=== PATIENT | female | born 1995 ===

== ENCOUNTER 2017-04-25 10:07 | Emergency (ER) | payer MEDICAID ==
[2017-04-25 10:17] VITALS: RESP 16
[2017-04-25 10:20] VITALS: BP 104/78; PULSE 102; TEMP 98.7; O2SAT 100; BMI 26.2
--- NOTE | 2017-04-25 10:27 | ED PDOC ---
Arrival/HPI - General Chief Complaint: Fever Time Seen by Provider: 04/25/17 10:21 Historian: Patient - History of Present Illness Narrative History of Present Illness (Text): 04/25/17 10:24 22yo female with no PMHx present with complaint of sore throat and fever x 5days. States she has been taking Nyquil without relieve. +Odynophagia. denies dysphagia, drooling, hoarseness, abdominal pain, neck pain, sick contact. Past Medical History - Provider Review Nursing Documentation Reviewed: Yes - Psychiatric Hx Psychophysiologic Disorder: No Hx Substance Use: No - Surgical History Other/Comment: CYSST REMOVED FROM NECK. Family/Social History - Physician Review Nursing Documentation Reviewed: Yes Family/Social History: Unknown Family HX Smoking Status: Never Smoked Hx Alcohol Use: No Hx Substance Use: No Allergies/Home Meds Allergies/Adverse Reactions: Allergies peanut Allergy (Verified 04/25/17 10:11) RASH Review of Systems - Physician Review All systems were reviewed & negative as marked: Yes - Review of Systems Constitutional: Normal Eyes: Normal ENT: Sore Throat Respiratory: Normal Cardiovascular: Normal Gastrointestinal: Normal Genitourinary Female: Normal Musculoskeletal: Normal Skin: Normal Neurological: Normal Endocrine: Normal Hemo/Lymphatic: Normal Psychiatric: Normal Physical Exam Vital Signs Reviewed: Yes Vital Signs Temp Pulse Resp BP Pulse Ox 04/25/17 10:19 98.7 F 102 H 16 104/78 100 04/25/17 10:11 99.7 F H 105 H 16 90/63 L 99 Temperature: Afebrile Blood Pressure: Normal Pulse: Regular Respiratory Rate: Normal Appearance: Positive for: Well-Appearing, Non-Toxic, Comfortable Pain Distress: None Mental Status: Positive for: Alert and Oriented X 3 - Systems Exam Head: Present: Atraumatic, Normocephalic Pupils: Present: PERRL Extroacular Muscles: Present: EOMI Conjunctiva: Present: Normal Mouth: Present: Moist Mucous Membranes Pharnyx: Present: ERYTHEMA, TONSILS ENLARGED. No: EXUDATE, Peritonsilar Swelling, Uvular Deviation, Muffled/Hoarse Voice, Strider Neck: Present: Normal Range of Motion Respiratory/Chest: Present: Clear to Auscultation, Good Air Exchange. No: Respiratory Distress, Accessory Muscle Use Cardiovascular: Present: Regular Rate and Rhythm, Normal S1, S2. No: Murmurs Abdomen: Present: Normal Bowel Sounds. No: Tenderness, Distention, Peritoneal Signs Back: Present: Normal Inspection Upper Extremity: Present: Normal Inspection. No: Cyanosis, Edema Lower Extremity: Present: Normal Inspection. No: Edema Neurological: Present: GCS=15, CN II-XII Intact, Speech Normal Skin: Present: Warm, Dry, Normal Color. No: Rashes Psychiatric: Present: Alert, Oriented x 3, Normal Insight, Normal Concentration Disposition/Present on Arrival - Present on Arrival Any Indicators Present on Arrival: No History of DVT/PE: No History of Uncontrolled Diabetes: No Urinary Catheter: No History of Decub. Ulcer: No History Surgical Site Infection Following: None - Disposition Have Diagnosis and Disposition been Completed?: Yes Diagnosis: Acute tonsillitis Disposition: HOME/ ROUTINE Disposition Time: 10:30 Patient Plan: Discharge Condition: STABLE Discharge Instructions (ExitCare): Tonsillitis (ED) Additional Instructions: Follow up with your Doctor Return to ED for any new or worsening symptoms Do a warm salty water gargle Prescriptions: Amoxicillin 500 mg PO BID #14 tablet Referrals: [facility] at [facility] [place] [Outside] - Follow up with primary
== END 2017-04-25 11:10 | disposition home or self-care (01) ==
LOC: ED 10:07 → MERGE 10:07 → ED 11:10
DX: J03.90 Acute tonsillitis, unspecified (principal)
CPT/HCPCS: 96372; 99283; J1100

== ENCOUNTER 2018-03-19 15:24 | Emergency (ER) | payer MEDICAID ==
[2018-03-19 15:27] VITALS: RESP 18; TEMP 98.2; BMI 23.8
[2018-03-19] MEDS ORDERED: Sodium Chloride 0.9% 1,000 ML IV STA (16:26)
--- NOTE | 2018-03-19 16:38 | ED PDOC ---
Arrival/HPI - History of Present Illness Time/Duration: Other (3 days) Symptom Onset: Gradual Symptom Course: Unchanged Severity Level: 5 Activities at Onset: Rest <Lyn Degroot - Last Filed: 03/19/18 20:33> <Emily Funez - Last Filed: 03/19/18 21:53> - General Chief Complaint: Abdominal Pain Time Seen by Provider: 03/19/18 16:01 - History of Present Illness Narrative History of Present Illness (Text): 03/19/18 16:27 Patient is a 23 year old female with no significant past medical history who presents to the Emergency department complaining of abdominal pain, vomiting, and diarrhea of 3 days duration. Patient says she woke up early Saturday morning with nausea and vomiting. Shortly after she started having diarrhea. Patient says since then she has vomited 4-5 times but had multiple episodes of watery diarrhea that she cannot quantify other than saying its happening every 5 minutes. She says she took immodium with minimal relief. Patient denies hematemasis, hematochezia, melena. Patient says yesterday she started to develop periumbilical tenderness that is radiating to her back as well as lightheadedness. She describes this pain as her stomach "bubbling" and 5/10 intensity. Of note, patient went to a BBQ for Mother's Day on Saturday and says she had chicken, rice, and bread, as well as an alcoholic beverage that she did not know what was in it other than [place] juice. She says no one else at the BBQ had symptoms like she did that she knows of. She denies fever, chills, sweats, headache, chest pain, shortness of breath, nasal/sinus congestion, cough, sick contacts, and recent travel. 03/19/18 17:05 03/19/18 17:07 (Lyn Degroot) Past Medical History - Past History Past History: No Previous - Infectious Disease Hx of Infectious Diseases: None - Psychiatric Hx Psychophysiologic Disorder: No Hx Substance Use: No - Surgical History Other/Comment: CYSST REMOVED FROM NECK. <Lyn Degroot - Last Filed: 03/19/18 20:33> - Provider Review Nursing Documentation Reviewed: Yes <Emily Funez - Last Filed: 03/19/18 21:53> Family/Social History Family/Social History: Diabetes (father) Smoking Status: Never Smoked Hx Alcohol Use: No Hx Substance Use: No <Lyn Degroot - Last Filed: 03/19/18 20:33> - Physician Review Nursing Documentation Reviewed: Yes <Emily Funez - Last Filed: 03/19/18 21:53> Allergies/Home Meds <Lyn Degroot - Last Filed: 03/19/18 20:33> <Emily Funez - Last Filed: 03/19/18 21:53> Allergies/Adverse Reactions: Allergies cat dander Allergy (Verified 12/24/15 19:19) unknown dog dander Allergy (Verified 12/24/15 19:19) unknown EGG Allergy (Verified 12/24/15 19:19) unknown enalapril maleate [From Vasotec] Allergy (Verified 12/24/15 19:19) unknown enalaprilat dihydrate [From Vasotec] Allergy (Verified 12/24/15 19:19) unknown peanut Allergy (Verified 12/02/15 18:54) Review of Systems - Physician Review All systems were reviewed & negative as marked: Yes - Review of Systems Constitutional: Normal. absent: Fatigue, Fevers, Night Sweats Eyes: Normal ENT: Normal. absent: Sore Throat, Rhinorrhea, Sinus Congestion Respiratory: Normal. absent: SOB, Cough Cardiovascular: Normal. absent: Chest Pain, Palpitations, Syncope Gastrointestinal: Abdominal Pain (periumbilical), Diarrhea (watery, nonbloody), Nausea, Vomiting, Appetite Changes (decreased). absent: Constipation, Hematochezia, Hematemesis Genitourinary Female: Normal. absent: Dysuria, Frequency, Hematuria Musculoskeletal: Normal Skin: Normal. absent: Rash Neurological: Dizziness. absent: Headache <Lyn Degroot - Last Filed: 03/19/18 20:33> Physical Exam Temperature: Afebrile Blood Pressure: Normal Pulse: Regular Respiratory Rate: Normal Appearance: Positive for: Well-Appearing, Non-Toxic, Comfortable Pain Distress: Mild Mental Status: Positive for: Alert and Oriented X 3 - Systems Exam Head: Present: Atraumatic, Normocephalic Pupils: Present: PERRL Extroacular Muscles: Present: EOMI Conjunctiva: Present: Normal Mouth: Present: Dry Neck: Present: Normal Range of Motion Respiratory/Chest: Present: Clear to Auscultation, Good Air Exchange. No: Respiratory Distress, Accessory Muscle Use Cardiovascular: Present: Regular Rate and Rhythm, Normal S1, S2. No: Murmurs Abdomen: Present: Tenderness (LLQ and RLQ with radiation to the periumbilical area). No: Distention, Normal Bowel Sounds (hyperactive), Peritoneal Signs, Rebound, Guarding, Rovsing's Sign Present, Hernias, Mass/Organomegaly, Scars Back: Present: Normal Inspection Upper Extremity: Present: Normal Inspection. No: Cyanosis, Edema Lower Extremity: Present: Normal Inspection. No: Edema Neurological: Present: GCS=15, Speech Normal Skin: Present: Warm, Dry, Normal Color. No: Rashes Psychiatric: Present: Alert, Oriented x 3, Normal Insight, Normal Concentration <Lyn Degroot - Last Filed: 03/19/18 20:33> Vital Signs Temp Pulse Resp BP Pulse Ox 03/19/18 15:25 98.2 F 85 18 112/82 99 Medical Decision Making <Lyn Degroot - Last Filed: 03/19/18 20:33> <Emily Funez - Last Filed: 03/19/18 21:53> ED Course and Treatment: 03/19/18 16:43 Patient discussed with attending, Dr. Funez. Will get routine lab work to rule out electrolyte abnormalities and give 1 L bolus of normal saline with zofran for nausea. Will reassess. 03/19/18 19:03 Patient still having pain - discussed with Dr. Funez and will check CT abdomen/ pelvis with IV contrast. 03/19/18 20:34 CT abdomen/pelvis showed pericholecystic fluid so abdominal ultrasound ordered - will follow up. (Lyn Degroot) A 23 year old female with abdominal pain, vomiting and diarrhea. In agreement with resident note, which includes further HPI details. Patient was seen and evaluated with resident, came up with plan and treatment together. On exam, mild periumbilical pain, no rebound or guarding. Patient denies any recent travel or antibiotic use. Patient states her family members have been eating the same meals as her over the past 4 days and have not had any similar symptoms. CT scan was ordered due to persistent pain and results were unremarkable aside from possible pericholecystic fluid around the gallbladder. Thus, an abdominal ultrasound was ordered which was unremarkable. On re- examination, patient is pain free and has not had an episode of diarrhea after several hours in the emergency room. Plan is to discharge patient home with Keflex for possible UTI. Patient advised to follow up in 1-2 days with PMD. ( Emily Funez) - Lab Interpretations Lab Results: 03/19/18 16:45 03/19/18 16:45 Lab Results 03/19/18 18:50: Urine Color Yellow, Urine Appearance Clear, Urine pH 6.0, Ur Specific [place] 1.020, Urine Protein Trace H, Urine Glucose (UA) Negative, Urine Ketones Negative, Urine Blood Negative, Urine Nitrate Negative, Urine Bilirubin Negative, Urine Urobilinogen 0.2, Ur Leukocyte Esterase Small H, Urine RBC Negative, Urine WBC 2 - 5, Ur Epithelial Cells 4 - 5, Urine Bacteria Mod, Urine HCG, Qual Negative 03/19/18 16:45: Sodium 143, Potassium 4.3, Chloride 104, Carbon Dioxide 27, Anion Gap 17, BUN 10, Creatinine 0.6 L, Est GFR ( Amer) > 60, Est GFR ( Non-Af Amer) > 60, Random Glucose 82, Calcium 9.3, Magnesium 1.7, Total Bilirubin 1.1, AST 23, ALT 22, Alkaline Phosphatase 62, Total Protein 7.9, Albumin 4.5, Globulin 3.3, Albumin/Globulin Ratio 1.4 03/19/18 16:45: WBC 11.1 H, RBC 4.97, Hgb 13.1, Hct 36.5, MCV 73.4 L, MCH 26.4, MCHC 35.9, RDW 17.2 H, Plt Count 329, MPV 9.9 - RAD Interpretation Radiology Orders: 03/19/18 19:01 ABD & PELVIS IV CONTRAST ONLY [CT] Stat 03/19/18 20:18 ABDOMEN COMPLETE [US] Stat - Medication Orders Current Medication Orders: Discontinued Medications Sodium Chloride (Sodium Chloride 0.9%) 1,000 mls @ 999 mls/hr IV .Q1H1M STA Stop: 03/19/18 17:26 Last Admin: 03/19/18 17:01 Dose: 999 mls/hr eMAR Start Stop Document 03/19/18 17:01 GMD (Rec: 03/19/18 17:01 GMD [id number]) Intravenous Solution Start Date 03/19/18 Start Time 17:01 End Date 03/19/18 End time 18:02 Total Infusion Time 61 Ondansetron HCl (Zofran Inj) 4 mg IVP STAT STA Stop: 03/19/18 16:27 Last Admin: 03/19/18 17:01 Dose: 4 mg IVP Administration Document 03/19/18 17:01 GMD (Rec: 03/19/18 17:01 GMD [id number]) Charges for Administration # of IVP Administrations 1 - PA / INSURANCE SALES ASSISTANT / Resident Statement / has reviewed & agrees with the documentation as recorded. / has examined the patient and agrees with the treatment plan. <Lyn Degroot - Last Filed: 03/19/18 20:33> Disposition/Present on Arrival - Present on Arrival Any Indicators Present on Arrival: No History of DVT/PE: No History of Uncontrolled Diabetes: No Urinary Catheter: No History Surgical Site Infection Following: None <Lyn Degroot - Last Filed: 03/19/18 20:33> <Emily Funez - Last Filed: 03/19/18 21:53> - Disposition Diagnosis: Gastroenteritis, UTI (urinary tract infection) Disposition: HOME/ ROUTINE Patient Problems: Current Active Problems Problem Status Onset Gastroenteritis Acute UTI (urinary tract infection) Acute Condition: GOOD Discharge Instructions (ExitCare): Urinary Tract Infection, Adult (DC), Gastroenteritis (ED) Additional Instructions: For any return or worsening of pain, any fevers/chills, any lightheadedness or dizziness, any chest pain or shortness of breath, any rash, any bloody urine or stool, any persistent loose stools after additional 24 hours, get rechecked. Follow-up with your physician in 1-2 days. Return to ER immediately for any persistence or worsening of any symptoms. Prescriptions: Cephalexin [Keflex] 500 mg PO BID #10 capsule Famotidine [Pepcid] 20 mg PO DAILY #5 tab Referrals: Montez Giang, MARK, CENTRAL SUPPLY ASSISTANT [Primary Care Provider] - Follow up with primary Forms: [employer] ([place])
[2018-03-19 17:22] LABS: ALB/GLOB RATIO 1.4 (1.1-1.8); ALBUMIN 4.5 g/dL (3.0-4.8); ALT/SGPT 22 U/L (7-56); AST/SGOT 23 U/L (14-36); BLOOD UREA NITROGEN 10 mg/dL (7-21); CALCIUM 9.3 mg/dL (8.4-10.5); GFR AFRICAN-AMERICAN > 60; GFR NON-AFRICAN AMERICAN > 60; HEMOGLOBIN 13.1 g/dL (12.0-16.0); MEAN CELL VOLUME 73.4 fl (80.0-105.0); MEAN CORPUSCULAR HEMOGLOBIN 26.4 pg (25.0-35.0); MEAN CORPUSCULAR HGB CONC 35.9 g/dl (31.0-37.0); MEAN PLATELET VOLUME 9.9 fl (7.0-11.0); RBC 4.97 10^6/uL (3.5-6.1); RED CELL DISTRIBUTION WIDTH 17.2 % (11.5-14.5); WHITE BLOOD COUNT 11.1 10^3/ul (4.5-11.0)
[2018-03-19 19:01] LABS: URINE BILIRUBIN NEGATIVE (NEGATIVE); URINE BLOOD NEGATIVE (NEGATIVE); URINE GLUCOSE (UA) NEGATIVE (NEGATIVE); URINE LEUKOCYTE ESTERASE SMALL Leu/uL (NEGATIVE); URINE PROTEIN TRACE mg/dL (<30 mg/dL); URINE UROBILINOGEN 0.2 E.U./dL (<1 E.U./dL)
[2018-03-19 19:02] LABS: URINE COLOR YELLOW (YELLOW)
[2018-03-19 19:03] LABS: URINE APPEARANCE CLEAR (CLEAR)
[2018-03-19] MEDS ORDERED: Iohexol 350 MG/100 ML VIAL ONE (19:06)
[2018-03-19 19:10] LABS: URINE RBC NEGATIVE /hpf (0-2)
[2018-03-19 19:11] LABS: HCG,QUALITATIVE URINE NEGATIVE (NEGATIVE); URINE BACTERIA MOD (NEG)
--- NOTE | 2018-03-19 20:15 | CT ---
EXAM: CT Abdomen and Pelvis With Intravenous Contrast EXAM DATE/TIME: 03/19/2018 7:01 PM CLINICAL HISTORY: 23 years old, female; Signs and symptoms; Abdominal tenderness and nausea and vomiting; Additional info: Abdominal pain TECHNIQUE: Axial computed tomography images of the abdomen and pelvis with intravenous contrast. All CT scans at this facility use one or more dose reduction techniques, viz.: automated exposure control; ma/kV adjustment per patient size (including targeted exams where dose is matched to indication; i.e. head); or iterative reconstruction technique. Coronal and sagittal reformatted images were created and reviewed. CONTRAST: 94 mL of omnipaque 350 administered intravenously. COMPARISON: There are no prior studies for comparison. FINDINGS: Lung bases: Heart size is normal. There is minimal atelectasis at the lung bases. ABDOMEN: Liver: unremarkable Gallbladder and bile ducts: Gallbladder is partially distended. There is minimal pericholecystic fluid/edema. There is mild prominence of gallbladder wall. Common duct is unremarkable. Pancreas: unremarkable Spleen: unremarkable Adrenals: unremarkable Kidneys and ureters: unremarkable Stomach and bowel: Stomach is almost empty. Rotation is normal. Mid and distal small bowel is mildly distended with fluid and air. There is no small bowel obstruction. Terminal ileum is unremarkable. Appendix is not visualized. There is no pericecal inflammation. Colon is incompletely distended which limits evaluation. PELVIS: Appendix: See stomach and bowel Bladder: unremarkable Reproductive: Uterus and adnexal structures are unremarkable. ABDOMEN and PELVIS: Intraperitoneal space: There is no free air. There is no significant fluid in the pelvis. Bones/joints: There are no acute osseous abnormalities. Soft tissues: unremarkable Vasculature: Vascular structures are unremarkable. Lymph nodes: There is shotty adenopathy. IMPRESSION: No acute solid visceral abnormality; mild ileus, no obstruction, nonvisualization the appendix but no CT findings of appendicitis; minimal pericholecystic edema Additional nonemergent findings as described above.
--- NOTE | 2018-03-19 21:06 | US ---
EXAM: US Abdomen Complete EXAM DATE/TIME: 03/19/2018 8:18 PM CLINICAL HISTORY: 23 years old, female; Pain; Abdominal pain; Flank; Right upper quadrant (ruq); Additional info: Upper abdominal pain TECHNIQUE: Real-time ultrasound of the abdomen (complete) with image documentation. COMPARISON: CT - ABD PELVIS IV CONTRAST ONLY 2018-03-19 19:33 FINDINGS: Liver: Liver is unremarkable. There is hepatopedal flow in the main portal vein. Gallbladder: Gallbladder is partially distended with no stones, sludge or wall thickening. Common bile duct: Common bile duct measures 4 mm in diameter. Pancreas: Pancreas is partially obscured by bowel gas. Kidneys: Kidneys are unremarkable. Spleen: Spleen is unremarkable. Aorta: Visualized portions of the aorta and inferior vena cava are unremarkable. Inferior vena cava: See above. IMPRESSION: No gallstones or ductal dilatation Patient was not tender over the gallbladder
[2018-03-19 22:01] VITALS: BP 122/78; PULSE 65; O2SAT 98
== END 2018-03-19 21:59 | disposition home or self-care (01) ==
LOC: ED 15:24
DX: K52.9 Noninfective gastroenteritis and colitis, unspecified (principal); N39.0 Urinary tract infection, site not specified
CPT/HCPCS: 74177; 76700; 80053; 81001; 83735; 84703; 85027; 87086; 96361; 96374; 99285; J2405; J7040; Q9967